=== PATIENT | male | born 2005 | race Caucasian/White ===

== ENCOUNTER 2024-06-12 08:55 | Emergency (ER) | payer SELFPAY ==
[~2024-06-12] VITALS: Ht 177.8 cm; Wt 81.6 kg
[2024-06-12 08:58] VITALS: BP 118/73; PULSE 83; RESP 17; TEMP 97.9; O2SAT 99
== END 2024-06-12 09:21 ==
LOC: MED 08:55
DX: F10.129 Alcohol abuse with intoxication, unspecified (principal)
CPT/HCPCS: 90471; 90715; 99283